=== PATIENT | female | born 1975 | race Hispanic/Latino ===

== ENCOUNTER 2021-09-17 07:37 | Day surgery (SDC) | payer OTHER ==
[~2021-09-17 07:37] MED LIST: 0.9%NACL 1000ML 1,000 ML IV ONE; ATOR10TA69 PO; LISI10TA24 PO; METF-444 PO; SEMA1PEN3 SQ
[2021-09-17] MEDS ORDERED: PROPOFOL 10 MG/ML 20ML VIAL IV ONE ×2 (10:01)
[2021-09-17 10:42] VITALS: BP 92/51
[2021-09-17 10:47] VITALS: BP 108/69
[2021-09-17 10:52] VITALS: BP 142/88
[2021-09-17 10:57] VITALS: BP 133/70
[2021-09-17 11:02] VITALS: BP 135/70
== END 2021-09-17 11:02 | disposition home or self-care (01) ==
LOC: ENDO 07:37 → DAH 07:37 → ENDO 11:02
PROVIDERS: ATTEND Internal Medicine Gastroenterology
DX: Z12.11 Encounter for screening for malignant neoplasm of colon (principal); R10.13 Epigastric pain; K21.00 Gastro-esophageal reflux disease with esophagitis, without bleeding; K44.9 Diaphragmatic hernia without obstruction or gangrene; K31.89 Other diseases of stomach and duodenum; K64.8 Other hemorrhoids; E11.9 Type 2 diabetes mellitus without complications; K76.0 Fatty (change of) liver, not elsewhere classified; R74.9 Abnormal serum enzyme level, unspecified; D69.3 Immune thrombocytopenic purpura; E78.5 Hyperlipidemia, unspecified; E66.01 Morbid (severe) obesity due to excess calories; Z68.41 Body mass index [BMI] 40.0-44.9, adult
CPT/HCPCS: 36415; 43239; 45378; 82948 ×2; 84703; 87635; A4215 ×2; A4221; A4222; A4223; A4606; A4620; A4663; C9803; J2704 ×2; J7030